=== PATIENT | male | born 1960 | race Caucasian/White ===

== ENCOUNTER → 2024-05-01 13:07 | Outpatient (BNVA) | payer BC, SELFPAY | PROVIDERS: PCP Nurse Practitioner Family; Visit Provider Student in an Organized Health Care Education/Training Program | DX: M19.011 Primary osteoarthritis, right shoulder | CPT/HCPCS: 73030 ==

== ENCOUNTER → 2024-06-08 07:49 | Outpatient (BNVA) | payer BC, SELFPAY | PROVIDERS: PCP Nurse Practitioner Family; Visit Provider Student in an Organized Health Care Education/Training Program | DX: M19.011 Primary osteoarthritis, right shoulder (principal) | CPT/HCPCS: 77002 ==

== ENCOUNTER → 2024-06-28 08:31 | Outpatient (BNVA) | payer BC, SELFPAY | PROVIDERS: PCP Nurse Practitioner Family; Visit Provider Nurse Practitioner Family | DX: Z00.00 Encounter for general adult medical examination without abnormal findings (principal) | CPT/HCPCS: 80053; 80061; 85025; G0103 ==

== ENCOUNTER 2024-07-13 08:34 | Outpatient (CLI) | payer BC, SELFPAY ==
--- NOTE | 2024-07-13 09:00 | CT_ITS ---
WS: [id number] LDCT LUNG CANCER SCREENING HISTORY: Z00.00 - Encounter for general adult medical examination ... TECHNIQUE: Axial imaging performed from the apices to 1 cm below the costophrenic angles. Coronal and sagittal reformats are submitted with axial MIP series. All CT scans at [facility] use at least one of these dose optimization techniques: automated exposure control; mA and/or kV adjustment per patient size (includes targeted exams where dose is matched to clinical indication); or iterativ e reconstruction. DLP: 69.31 mGy.cm DIvol: Mean CTDIvol: 1.20 (mGy) COMPARISON: None available. Diagnostic quality: Satisfactory Lungs: Mild hyperinflation with no pulmonary mass or pneumonia. 4 mm noncalcified nodule at the RIGHT lung base. Heart: Normal size heart with no pericardial effusion.. Other findings: Mild atherosclerosis aorta. Mild dilated pulmonary artery. Small mediastinal and nelda r lymph nodes. No adrenal mass. Splenic and hepatic granulomata. CT/CT lung screening 25257 IMPRESSION: LUNG-RADS: 2-Benign Appearance or Behavior FOLLOW UP: 12 Month: Continue annual screening with LDCT OTHER FINDINGS (S MODIFIER): None.
== END 2024-07-13 08:35 | disposition home or self-care (01) ==
LOC: RAD 08:36
PROVIDERS: PCP Nurse Practitioner Family; Visit Provider Nurse Practitioner Family
DX: Z12.2 Encounter for screening for malignant neoplasm of respiratory organs (principal); R91.1 Solitary pulmonary nodule; D73.89 Other diseases of spleen; K75.3 Granulomatous hepatitis, not elsewhere classified
CPT/HCPCS: 71271

== ENCOUNTER 2024-07-17 09:44 | Day surgery (SDC) | payer BC, SELFPAY ==
[2024-07-17 10:05] VITALS: BMI 23.7
[2024-07-17] MEDS: sodium chloride 0.9% 1,000 ML 30 ML IV (10:15)
[2024-07-17 10:17] VITALS: BP 127/83; PULSE 79; RESP 18; TEMP 36.3; O2SAT 94
--- NOTE | 2024-07-17 10:56 | ANES.PREANE2 ---
Pre-Anesthetic Assessment Height/Weight: Height 1.83 m Weight 79.379 kg Temp Pulse Resp BP Pulse Ox O2 Del Method 97.3 F L 79 18 127/83 94 Room Air 07/17/24 10:17 07/17/24 10:17 07/17/24 10:17 07/17/24 10:17 07/17/24 10:17 07/17/24 10:17 Preop Diagnosis: screening Operation Date: 07/17/24 11:00 Proposed Procedures p EGD 86302, 46474, G0121, Z12.11 . R12(Not Applicable) - Adalid Herring MD s Colonoscopy(Not Applicable) - Adalid Herring MD Familial anesthetic complications: none Was Beta Seble taken within 24 hours: N/A Was Clonidine taken within 24 hours: N/A Last intake: Intake Last Liquid Date 07/16/24 Last Liquid Time 23:00 Last Solid Date 07/15/24 Last Solid Time 15:00 Social Alcohol and Tobacco 1 PPD pack(s) per day Drinks beer Exam alert, oriented x 3, clear to auscultation bilaterally and regular rate & rhythm Airway Submandibular: within normal limits Cervical ROM: within normal limits Mallampati: Class II Dentition: full History/ROS No significant history except as noted and No significant complaints Pulmonary None reported CV/HEM None reported None reported Hepatic None reported GI Gastroesophageal Reflux Disease Metabolic None reported Musc/skel None reported Neuropsych None reported Anesthetic Plan ASA status: 2 Anesthesia: MAC Risk of > 500 ml blood loss (7ml/kg in children): No Medications/Allergies Home Medications Medication Instructions Recorded Confirmed Last Taken Type sildenafil 50 mg tablet (Viagra) 50 mg PO DAILY PRN sexual activity 03/29/24 07/16/24 2 Months Ago Rx #30 tabs ~05/16/24 naproxen sodium 220 mg tablet 220 mg PO BID PRN Pain, Mild 05/01/24 07/16/24 2 Months Ago History (Aleve) ~05/16/24 Allergies Allergy/AdvReac Type Severity Reaction Status Date / Time No Known Allergies Allergy Verified 07/16/24 13:36 Current Medications Generic Name Dose Route Start Last Admin Trade Name Freq PRN Reason Stop Dose Admin Sodium Chloride 1,000 mls @ 30 mls/hr 07/17/24 10:00 07/17/24 10:15 Sodium Chloride 0.9% IV 30 mls/hr .Q24H CHANTE Administration PFSH Anesthesia Medical History (Updated 07/12/24 @ 08:33 by Adalid Herring MD) Flu-like symptoms No pertinent past medical history Surgical History (Updated 07/12/24 @ 07:56 by DANIA Borja) History of back surgery Hx of shoulder surgery right Family History (Updated 07/12/24 @ 07:57 by DANIA Borja) Father Cancer lung Social History Smoking and tobacco/nicotine status: current every day tobacco/nicotine user Data Anesthesia Cardiac Studies: No Data to Display
[2024-07-17] MEDS: acetaminophen 1,000 MG/100 ML PIGGYBACK 400 MG IV (11:09)
--- NOTE | 2024-07-17 12:00 | W.PM.OPSUD ---
Surgery/Procedure H&P Update DATE OF PROCEDURE: July 17, 2024 DATE H&P PERFORMED: 07/12/24 H&P UPDATE INFORMATION: I have reviewed H&P completed within last 30 days, I have examined patient prior to procedure and No changes to prior documentation PREOP DIAGNOSIS: screening PLANNED PROCEDURE: Operation Date: 07/17/24 11:00 Proposed Procedures p EGD 72025, 38608, G0121, Z12.11 . R12(Not Applicable) - Adalid Herring MD s Colonoscopy(Not Applicable) - Adalid Herring MD
[2024-07-17 12:38] VITALS: BP 97/53; PULSE 79; RESP 18; O2SAT 95
[2024-07-17 13:03] VITALS: BP 122/77; PULSE 78; RESP 18; O2SAT 94
[2024-07-17 13:18] VITALS: BP 122/77; PULSE 82; RESP 16; O2SAT 95
--- NOTE | 2024-07-17 13:45 | ANE.PACU2 ---
Inpatient post-anesthesia follow up: Airway intact: Yes Vital signs: Temperature 97.3 F Pulse Rate 82 Respiratory Rate 16 Blood Pressure 122/77 Pulse Oximetry 95 Oxygen Delivery Me thod Room Air Oxygen Flow Rate Fraction of Inspir ed Oxygen Hydration adequate: Yes Nausea and vomiting: No Pain level: 1 Mental status: Baseline
== END 2024-07-17 13:45 | disposition home or self-care (01) ==
PROVIDERS: PCP Nurse Practitioner Family; Visit Provider Student in an Organized Health Care Education/Training Program
PROC: 0DJ08ZZ Inspection of Upper Intestinal Tract, Via Natural or Artificial Opening Endoscopic (ICD-10-PCS; CPT 43235; principal; 2024-07-17 11:00)
PROC: 0DJD8ZZ Inspection of Lower Intestinal Tract, Via Natural or Artificial Opening Endoscopic (ICD-10-PCS; CPT 45378; 2024-07-17 11:00)
DX: Z12.11 Encounter for screening for malignant neoplasm of colon (principal); R12 Heartburn; D12.8 Benign neoplasm of rectum; F17.200 Nicotine dependence, unspecified, uncomplicated; K21.9 Gastro-esophageal reflux disease without esophagitis
CPT/HCPCS: 43239; 45380; 88305; J0131; J2704; J7030

== ENCOUNTER 2025-03-18 20:46 | Emergency (ER) | payer BC, SELFPAY ==
--- NOTE | 2025-03-18 20:47 | ECG_ITS ---
[facility] Test Date: 2025-03-18 Pat Name: Hong Aguirre Department: Room: Gender: Male Breakdown Worker: : 1960 Requested By: Chele Angulo Order Number: [id number] Litzy MD: Trevon Fernández M.D. Measurements Intervals [place] Rate: 91 P: 58 NE: 146 QRS: 39 QRSD: 86 T: 55 QT: 338 QTc: 416 Interpretive Statements SINUS RHYTHM POSSIBLE RIGHT VENTRICULAR CONDUCTION DELAY [RSR (QR) IN V1/V2] No previous ECG available for comparison Electronically Signed On 03-21-2025 09:05:50 CDT by Trevon Fernández M.D. [email or web address]
[2025-03-18 20:50] VITALS: BP 131/87; PULSE 94; RESP 16; TEMP 36.5; O2SAT 96; BMI 24.4
--- OUTSIDE RECORDS SUMMARY | 2025-03-18 20:50 | XMS_ITS | Clinical Summary ---
Author Organization [facility] Address [address] [place] [address] Phone Care Team Providers Care Molecular Pathologist Name Role Phone Moisés Montoya MD Primary Care Provider [phone] Allergies No known active allergies Medications naproxen (NAPROSYN) 500 mg tabletIndication s:Acute pain of left shoulder Take 1 Tablet (500 mg) by mouth 2 times daily with meals. 30 Tablet 2 Active Additional Information Patient not taking.Reported on 07/27/2022 albuterol sulfate 90 mcg/Actuation inhalerIndicatio ns:COVID-19 virus detected Take 2 Puffs by inhalation every 6 hours as needed for Shortness of Breath. 8.5 Gram 2 Active sildenafiL (VIAGRA) 50 mg tabletIndication s:Erectile dysfunction, unspecified erectile dysfunction type Take 1 Tablet (50 mg) by mouth 1 time daily as needed for Erectile Dysfunction. 30 Tablet 3 3 Active pantoprazole (Protonix) 20 mg Tablet, Delayed Release (E.C.)Indication s:Gastroesophage al reflux disease, unspecified whether esophagitis present Take 1 Tablet (20 mg) by mouth daily. 30 Tablet 3 Active cyclobenzaprine (FLEXERIL) 5 mg TabletIndication s:Acute midline low back pain with right-sided sciatica Take 1 Tablet (5 mg) by mouth 3 times daily as needed for Spasm. 30 Tablet 1 3 Active Active Problems Problem Noted Date Diagnosed Date Erectile dysfunction 02/01/2022 Finger pain, left 12/29/2017 Left shoulder strain, initial encounter 12/30/19 18 Herniated lumbar disc without myelopathy 014 Elbow pain 11/19/2011 Resolved Problems Problem Noted Date Diagnosed Date Resolved Date AVN (avascular necrosis of bone), Right Hip. 9 12/15/2021 Immunizations Immunization Administration Dates Next Due (ADACEL/BOOSTRIX)(10 YR UP) TDAP VACCINE, 0.5ML, IM 03/07/2023 (TDVAX)(7 YRS UP) TETANUS AN D DIPHTHERIA TOXOIDS, ADSORBED (2 LF OF TETANUS TOXOID AND 2 LF OF DIPHTHERIA TOXOID), 0.5ML (PF), IM 11/25/2003 (TENIVAC)(7 YRS UP) TETANUS AND DIPHTHERIA TOXOIDS, ADSORBED (5 LF OF TETANUS TOXOID AND 2 LF OF DIPHTHERIA TOXOID), 0.5ML (PF), IM 12/29/2017 Hepatitis A Vaccine 08/10/2004,01/09/2004 Hepatitis B Vaccine 11/25/2003,12/17/1994,1994 Hepatitis B Vaccine, Unspeci fied Formulation 11/25/2003,12/17/1994,10/31/1994 Influenza Seasonal Unspecifi ed Formulation IM 07/19/2013 Family History Medical History Relation Name Comments Heart Disease Father Relation Name Status Comments Father Alive Mother Alive Social History Tobacco Use Types Packs/Day Years Used Date Smoking Tobacco: Former Cigarettes Smokeless Tobacco: Never Tobacco Cessation:Counseling Given: No Comments:Quit smokin days smoke free per pt 11 FEBRUARY 2014 Alcohol Use Standard Drinks/Week Comments Yes 0 (1 standard drink = 0.6 oz pur e alcohol) Sex and Gender Information Value Date Recorded Sex Assigned at Not on file Legal 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 Gender Identity Not on file Sexual Orientation Not on file Last Filed Vital Signs Vital Sign Reading Time Taken Comments Blood Pressure 120/82 03/21/2023 9:37 AM CDT Pulse 90 03/21/2023 9:37 AM CDT Temperature 36.7 C (98.1 F) 03/21/2023 9:37 AM CDT Respiratory Rate 18 03/21/2023 9:37 AM CDT Oxygen Saturation 97% 03/21/2023 9:37 AM CDT Inhaled Oxygen Concentration - - Weight 78.6 kg (173 lb 3.2 oz) 03/21/2023 9:37 A M CDT Height 182.9 cm (6') 03/21/2023 9:37 AM CDT Body Mass Index 23.49 03/21/2023 9:37 AM CDT Plan of Treatment Health Maintenance Due Date Last Done Comments COLORECTAL SCREENING 2007 Colorectal Cancer Screening 2007 FIT-DNA Q 3 years 2007 FIT/FOBT Q 1 year 2007 Flex Sig/CT Colonography Q 5 years 2007 ZOSTER VACCINE (1 of 2) 2012 Preventative Visit- Commercial 08/29/2024 INFLUENZA VACCINE (#1) 2025 2, 12/15/2021, 07/19/2013 DTAP/TDAP/TD VACCINES (2 - T d or Tdap) 03/07/2033 03/07/2023, 12/29/2017, 11/25/2003 RSV VACCINE (60+ or ) (1 - 1-dose 75+ series) 2037 Insurance [facility] BLUE ACCESS/TRUE BLUE PPO Care Teams Molecular Pathologist Relationship Specialty Start Date End Date Moisés Montoya MD [address] [place] [address] PCP - General Family Practice 03/10/21
[2025-03-18 22:38] LABS: Hematocrit 46.2 % (37-53); Hemoglobin 16.00 g/dL (11.27-16.99); Mean Corpuscular HGB Conc 34.6 g/dL (30-55); Mean Corpuscular Hemoglobin 31.3 pg (27-33); Mean Corpuscular Volume 90.4 fl (82-101); Nucleated Red Blood Cells % 0 %; Platelet Count 199 10^3/cmm (157-399); Red Blood Count 5.11 10^6/uL (3.85-5.65); White Blood Count 9.51 10^3/uL (3.29-11.43)
--- NOTE | 2025-03-18 22:40 | W.ED.CHESTPA ---
Documented by User: Karl Cullen DO 03/19/25 13:53 HPI - Chest Pain General: Chief Complaint: Chest Pain Stated Complaint: chest pain Time Seen by Provider: 03/18/25 22:24 History of Present Illness: 64-year-old male presents emergency room complaining of chest pain began today while at the grocery store. It has been going on since around noon time he is felt like he might pass out it seemed to resolve and then began to recur again. Patient stated he had these episodes intermittently for the last 2 weeks that usually come on while at rest the last 20 to 30 minutes at a time he will get nauseous with it he does not really get any radiation of the pain in the neck or arm will feel short of breath with him but no diaphoresis he has not had any vomiting. He states that many years ago he had a stress test that did an angiogram after the stress test told him there was some heart disease but nothing that required any kind of intervention. Patient is a lifelong smoker. Associated symptoms: Deny abdominal pain, dyspnea or fever(s) Related Data Home Medications ?Medication ?Instructions ?Recorded ?Confirmed naproxen sodium 220 mg tablet 220 mg PO BID PRN Pain, Mild 05/01/24 07/24/24 (Aleve) Previous Rx's ?Medication ?Instructions ?Recorded sildenafil 50 mg tablet (Viagra) 50 mg PO DAILY PRN sexual activity 03/29/24 #30 tabs Allergies Allergy/AdvReac Type Severity Reaction Status Date / Time No Known Allergies Allergy Verified 03/18/25 20:53 Review of Systems Const: Denies: fever(s) or chills Card: Reports: chest pain Resp: Denies: dyspnea GI: Denies: abdominal pain : Denies: dysuria, urinary frequency or urinary urgency Musc: Denies: neck pain or back pain Skin/Breast: Denies: rash PFSH ED PFSH: Medical History Flu-like symptoms No pertinent past medical history Surgical History History of back surgery Hx of shoulder surgery right Family History Father Cancer lung Social History Smoking and tobacco/nicotine status: current every day tobacco/nicotine user Physical Exam Const: GENERAL APPEARANCE: cooperative ORIENTATION/CONSCIOUSNESS: Yes awake, Yes oriented to person, Yes oriented to place and Yes oriented to time HENMT: COMMON NORMALS: normocephalic, atraumatic and hearing grossly normal bilaterally HEAD & SCALP: normocephalic and atraumatic Resp: COMMON NORMALS: normal respiratory effort, No retractions, No use of accessory muscles and clear to auscultation bilaterally AUSCULTATION: clear to auscultation bilaterally Cardio: COMMON NORMALS: regular rate, regular rhythm and No murmurs present (Cardio) RATE: regular rate RHYTHM: regular rhythm GI: COMMON NORMALS: Soft to palpation and No hepatosplenomegaly present AUSCULTATION: Yes normoactive bowel sounds PALPATION: Yes Soft to palpation, No Tenderness to palpation present (GI), No Guarding due to palpation present (GI) and Yes No hepatosplenomegaly present Extremity: COMMON NORMALS: normal to inspection, capillary refill normal, no clubbing, cyanosis or edema, no calf tenderness and no pedal edema Neuro: SENSORIUM/ORIENTATION: Yes oriented to person, Yes oriented to place and Yes oriented to time Skin: COMMON NORMALS: no rashes or lesions noted GENERAL SKIN EXAM: no rashes or lesions noted Course Vital Signs: Vital signs: Vital Signs Temperature 97.7 F 03/18/25 20:50 Pulse Rate 95 03/19/25 01:15 Respiratory Rate 20 H 03/19/25 01:15 Blood Pressure 116/80 03/19/25 01:15 Pulse Oximetry 100 03/19/25 01:15 [facility] - Chest Pain Medical Decision Making Care signed out to Dr. Rabago at change of shift. See final notes for diagnosis and disposition. 64-year-old male signed out to me in shift change from Dr. Cullen. I reexamined the patient. His pain is resolved. He states he feels better. His EKG was not remarkable. No ST-T wave changes. Shows sinus rhythm with normal axis. He had an RS R prime in V1 and V2. His blood pressure is normalized. His CBC and BMP are normal. His chest x-ray shows no acute findings. His lipase is 32. His troponin is 7 at baseline and less than 6 at 2 hours with improvement in his pain. He would like to go home. He was advised to return for any return of his symptoms. Outpatient stress test will be set up for the patient. Case management has been asked to do this. Lab Data 03/18/25 22:12 03/18/25 22:12 Radiology Impressions Chest X-Ray 03/18/25 23:59 IMPRESSION: No acute findings. Laboratory Results WBC 9.51 10^3/uL (3.29-11.43) 03/18/25 22:12 RBC 5.11 10^6/uL (3.85-5.65) 03/18/25 22:12 Hgb 16.00 g/dL (11.27-16.99) 03/18/25 22:12 Hct 46.2 % (37-53) 03/18/25 22:12 MCV 90.4 fl (82-101) 03/18/25 22:12 MCH 31.3 pg (27-33) 03/18/25 22:12 MCHC 34.6 g/dL (30-55) 03/18/25 22:12 RDW 12.1 % (12.1-15.1) 03/18/25 22:12 Plt Count 199 10^3/cmm (157-399) 03/18/25 22:12 MPV 10.2 fL (7.4-10.4) 03/18/25 22:12 Neut % (Auto) 59.1 % 03/18/25 22:12 Lymph % (Auto) 26.1 % 03/18/25 22:12 Wood % (Auto) 8.3 % 03/18/25 22:12 Eos % (Auto) 5.4 % 03/18/25 22:12 Baso % (Auto) 0.7 % 03/18/25 22:12 Neut # (Auto) 5.62 10^3/uL (1.8-7.7) 03/18/25 22:12 Lymph # (Auto) 2.5 10^3/uL (0.8-4.8) 03/18/25 22:12 Wood # (Auto) 0.8 10^3/uL (0.2-0.9) 03/18/25 22:12 Eos # (Auto) 0.5 10^3/uL (0.0-0.8) 03/18/25 22:12 Baso # (Auto) 0.1 10^3/uL (0.0-0.1) 03/18/25 22:12 Nucleated RBC % (auto) 0 % 03/18/25 22:12 Nucleated RBCs # 0.0 /100WBC 03/18/25 22:12 Sodium 138 mmol/L (136-145) 03/18/25 22:12 Potassium 4.5 mmol/L (3.5-5.1) 03/18/25 22:12 Chloride 101 mmol/L (98-107) 03/18/25 22:12 Carbon Dioxide 25 mmol/L (22-29) 03/18/25 22:12 Anion Gap 16.5 (5-19) 03/18/25 22:12 BUN 11 mg/dL (8-23) 03/18/25 22:12 Creatinine 1.0 mg/dL (0.7-1.2) 03/18/25 22:12 GFR Calculation 75.7 mL/min (90-130) L 03/18/25 22:12 Glucose 93 mg/dL (65-115) 03/18/25 22:12 Calculated Osmolality 285 mOsm/kg (285-295) 03/18/25 22:12 Calcium 9.3 mg/dL (8.5-10.5) 03/18/25 22:12 Total Bilirubin 0.6 mg/dL (0.15-1.2) 03/18/25 22:12 AST 14 U/L (0-40) 03/18/25 22:12 ALT 12 U/L (0-41) 03/18/25 22:12 Alkaline Phosphatase 104 U/L (40-130) 03/18/25 22:12 Troponin T Baseline 7 ng/L (0-15) 03/18/25 22:12 Troponin T 120 Minute < 6.0 ng/L (0-15) 03/18/25 23:58 Delta Troponin T -1.30952 ABS# (0-10) L 03/18/25 23:58 Total Protein 7.0 g/dL (6.6-8.7) 03/18/25 22:12 Albumin 4.3 g/dL (3.5-5.2) 03/18/25 22:12 Globulin 2.7 g/dL (1.3-4.6) 03/18/25 22:12 Lipase 32 U/L (13-60) 03/18/25 22:12 Discharge Plan Discharge Patient Disposition: Home Clinical Impression: Chest pain Condition: Stable Prescriptions: No Action sildenafil [Viagra] 50 mg tablet 50 mg PO DAILY PRN (Reason: sexual activity) Qty: 30 2RF Rx Instructions: administer 30 minutes to 4 hours before activity naproxen sodium [Aleve] 220 mg tablet 220 mg PO BID PRN (Reason: Pain, Mild) Discharge Orders: Discharge ED (Routine); Ordered 03/19/25 Ordered By: Rd Rabago Referrals: Kit Weems FNP [Primary Care Provider, Family Practice] - 1-3 days Patient Instructions: Chest Pain (ED), Opioid Safety, Pain Management, Patient Portal & Oriana Instructions Activity Restrictions/Additional Instructions: Case management has been asked to set up an outpatient stress test for you. You should get a call from them later this week. Results will go to your doctor. Call your doctor tomorrow for follow-up appointment. Return to the emergency department for any return of your pain, shortness of breath, fever, cough, other concerning symptoms. Print Language: Dominican Coding Level of Care Code ED Scaffold Worker for Chg Fwd Documented by User: Rd Rabago DO 03/19/25 03:38 HPI - Chest Pain General: Chief Complaint: Chest Pain Stated Complaint: chest pain Time Seen by Provider: 03/18/25 22:24 Related Data Home Medications ?Medication ?Instructions ?Recorded ?Confirmed naproxen sodium 220 mg tablet 220 mg PO BID PRN Pain, Mild 05/01/24 07/24/24 (Aleve) Previous Rx's ?Medication ?Instructions ?Recorded sildenafil 50 mg tablet (Viagra) 50 mg PO DAILY PRN sexual activity 03/29/24 #30 tabs Allergies Allergy/AdvReac Type Severity Reaction Status Date / Time No Known Allergies Allergy Verified 03/18/25 20:53 PFSH ED PFSH: Medical History Flu-like symptoms No pertinent past medical history Surgical History History of back surgery Hx of shoulder surgery right Family History Father Cancer lung Social History Smoking and tobacco/nicotine status: current every day tobacco/nicotine user Course Vital Signs: Vital signs: Vital Signs Temperature 97.7 F 03/18/25 20:50 Pulse Rate 95 03/19/25 01:15 Respiratory Rate 20 H 03/19/25 01:15 Blood Pressure 116/80 03/19/25 01:15 Pulse Oximetry 100 03/19/25 01:15 MDM - Chest Pain Medical Decision Making 64-year-old male signed out to me in shift change from Dr. Cullen. I reexamined the patient. His pain is resolved. He states he feels better. His EKG was not remarkable. No ST-T wave changes. Shows sinus rhythm with normal axis. He had an RS R prime in V1 and V2. His blood pressure is normalized. His CBC and BMP are normal. His chest x-ray shows no acute findings. His lipase is 32. His troponin is 7 at baseline and less than 6 at 2 hours with improvement in his pain. He would like to go home. He was advised to return for any return of his symptoms. Outpatient stress test will be set up for the patient. Case management has been asked to do this. Lab Data 03/18/25 22:12 03/18/25 22:12 Radiology Impressions Chest X-Ray 03/18/25 23:59 IMPRESSION: No acute findings. Laboratory Results WBC 9.51 10^3/uL (3.29-11.43) 03/18/25 22:12 RBC 5.11 10^6/uL (3.85-5.65) 03/18/25 22:12 Hgb 16.00 g/dL (11.27-16.99) 03/18/25 22:12 Hct 46.2 % (37-53) 03/18/25 22:12 MCV 90.4 fl (82-101) 03/18/25 22:12 MCH 31.3 pg (27-33) 03/18/25 22:12 MCHC 34.6 g/dL (30-55) 03/18/25 22:12 RDW 12.1 % (12.1-15.1) 03/18/25 22:12 Plt Count 199 10^3/cmm (157-399) 03/18/25 22:12 MPV 10.2 fL (7.4-10.4) 03/18/25 22:12 Neut % (Auto) 59.1 % 03/18/25 22:12 Lymph % (Auto) 26.1 % 03/18/25 22:12 Wood % (Auto) 8.3 % 03/18/25 22:12 Eos % (Auto) 5.4 % 03/18/25 22:12 Baso % (Auto) 0.7 % 03/18/25 22:12 Neut # (Auto) 5.62 10^3/uL (1.8-7.7) 03/18/25 22:12 Lymph # (Auto) 2.5 10^3/uL (0.8-4.8) 03/18/25 22:12 Wood # (Auto) 0.8 10^3/uL (0.2-0.9) 03/18/25 22:12 Eos # (Auto) 0.5 10^3/uL (0.0-0.8) 03/18/25 22:12 Baso # (Auto) 0.1 10^3/uL (0.0-0.1) 03/18/25 22:12 Nucleated RBC % (auto) 0 % 03/18/25 22:12 Nucleated RBCs # 0.0 /100WBC 03/18/25 22:12 Sodium 138 mmol/L (136-145) 03/18/25 22:12 Potassium 4.5 mmol/L (3.5-5.1) 03/18/25 22:12 Chloride 101 mmol/L (98-107) 03/18/25 22:12 Carbon Dioxide 25 mmol/L (22-29) 03/18/25 22:12 Anion Gap 16.5 (5-19) 03/18/25 22:12 BUN 11 mg/dL (8-23) 03/18/25 22:12 Creatinine 1.0 mg/dL (0.7-1.2) 03/18/25 22:12 GFR Calculation 75.7 mL/min (90-130) L 03/18/25 22:12 Glucose 93 mg/dL (65-115) 03/18/25 22:12 Calculated Osmolality 285 mOsm/kg (285-295) 03/18/25 22:12 Calcium 9.3 mg/dL (8.5-10.5) 03/18/25 22:12 Total Bilirubin 0.6 mg/dL (0.15-1.2) 03/18/25 22:12 AST 14 U/L (0-40) 03/18/25 22:12 ALT 12 U/L (0-41) 03/18/25 22:12 Alkaline Phosphatase 104 U/L (40-130) 03/18/25 22:12 Troponin T Baseline 7 ng/L (0-15) 03/18/25 22:12 Troponin T 120 Minute < 6.0 ng/L (0-15) 03/18/25 23:58 Delta Troponin T -1.83284 ABS# (0-10) L 03/18/25 23:58 Total Protein 7.0 g/dL (6.6-8.7) 03/18/25 22:12 Albumin 4.3 g/dL (3.5-5.2) 03/18/25 22:12 Globulin 2.7 g/dL (1.3-4.6) 03/18/25 22:12 Lipase 32 U/L (13-60) 03/18/25 22:12 All radiology interpretation(s) finalized by discharge Discharge Plan Discharge Patient Disposition: Home Clinical Impression: Chest pain Condition: Stable Prescriptions: No Action sildenafil [Viagra] 50 mg tablet 50 mg PO DAILY PRN (Reason: sexual activity) Qty: 30 2RF Rx Instructions: administer 30 minutes to 4 hours before activity naproxen sodium [Aleve] 220 mg tablet 220 mg PO BID PRN (Reason: Pain, Mild) Discharge Orders: Discharge ED (Routine); Ordered 03/19/25 Ordered By: Rd Rabago Referrals: Faustina,Kit Ruiz, RAILROAD DISPATCHER [Primary Care Provider, Family Practice] - 1-3 days Patient Instructions: Chest Pain (ED), Opioid Safety, Pain Management, Patient Portal & Oriana Instructions Activity Restrictions/Additional Instructions: Case management has been asked to set up an outpatient stress test for you. You should get a call from them later this week. Results will go to your doctor. Call your doctor tomorrow for follow-up appointment. Return to the emergency department for any return of your pain, shortness of breath, fever, cough, other concerning symptoms. Print Language: Dominican Coding Level of Care Code ED Scaffold Worker for Gaetano Wright
--- NOTE | 2025-03-18 22:47 | ECG_ITS ---
[facility] Test Date: 2025-03-18 Pat Name: Hong Aguirre Department: Room: Gender: Male Cam Specialist: : 1960 Requested By: Chele Angulo Order Number: [id number] Reading MD: Measurements Intervals [place] Rate: 80 P: 51 IN: 144 QRS: 25 QRSD: 88 T: 50 QT: 361 QTc: 417 Interpretive Statements SINUS RHYTHM POSSIBLE RIGHT VENTRICULAR CONDUCTION DELAY [RSR (QR) IN V1/V2] [email or web address]
[2025-03-18 22:57] LABS: Alanine Aminotransferase 12 U/L (0-41); Albumin Level 4.3 g/dL (3.5-5.2); Alkaline Phosphatase 104 U/L (40-130); Anion Gap 16.5 (5-19); Aspartate Amino Transferase 14 U/L (0-40); Blood Urea Nitrogen 11 mg/dL (8-23); Calcium 9.3 mg/dL (8.5-10.5); Carbon Dioxide 25 mmol/L (22-29); Chloride 101 mmol/L (98-107); Creatinine Clr Calc Pharmacy 85.8204; Globulin 2.7 g/dL (1.3-4.6); Glucose 93 mg/dL (65-115); Lipase 32 U/L (13-60); Osmolality Calculated 285 mOsm/kg (285-295); Potassium 4.5 mmol/L (3.5-5.1); Sodium 138 mmol/L (136-145); Total Protein 7.0 g/dL (6.6-8.7)
[2025-03-18 23:10] LABS: Troponin(5th) Baseline 7 ng/L (0-15)
--- NOTE | 2025-03-18 23:59 | XRR_ITS ---
PROCEDURE INFORMATION: Exam: XR Chest Exam date and time: 03/19/2025 12:06 AM Age: 64 years old Clinical indication: Pain; Chest pressure and left-sided; Additional info: Chest pain TECHNIQUE: Imaging protocol: Radiologic exam of the chest. Views: 1 view. COMPARISON: CT lung screening [id number] 07/13/2024 8:38 AM FINDINGS: Lungs: Unremarkable. No consolidation. Pleural spaces: Unremarkable. No pleural effusion. No pneumothorax. Heart/Mediastinum: Unremarkable. No cardiomegaly. Bones/joints: Unremarkable. XR/XR chest 1V portable [id number] IMPRESSION: No acute findings.
[2025-03-19 00:32] LABS: Troponin 5 2HR < 6.0 ng/L (0-15); Troponin 5 2HR Delta -1.00001 ABS# (0-10)
[2025-03-19 01:15] VITALS: BP 116/80; PULSE 95; RESP 20; O2SAT 100
== END 2025-03-19 01:15 | disposition home or self-care (01) ==
PROVIDERS: Emergency Medicine; Emergency Provider Emergency Medicine; PCP Nurse Practitioner Family
DX: R07.9 Chest pain, unspecified (principal)
CPT/HCPCS: 36415; 71045; 80053; 83690; 84484; 85025; 93005; 99285; J9999

== ENCOUNTER 2025-03-29 09:14 | Outpatient (CLI) | payer BC, SELFPAY ==
[2025-03-29 09:23] VITALS: BMI 24.4
--- NOTE | 2025-03-29 09:32 | ECG_ITS ---
[facility] Test Date: 2025-03-29 Pat Name: Hong Aguirre Department: Room: Gender: Male Online Content Editor: : 1960 Requested By: Rd Carney Order Number: [id number] Litzy MD: Murali Potter M.D. Interpretive Statements LEXISCAN SESTAMIBI STRESS TEST Procedure: At the baseline, the blood pressure was 130/72 mmHg with a heart rate of 81 bpm. The electrocardiogram showed normal sinus rhythm, normal axis with poor R wave progression and minor nonspecific ST-T wave abnormality. The Lexiscan was infused over a period of 20 seconds. A total of 0.4 mg of Lexiscan was infused. The stress phase was continued for a total of 5 minutes. Heart rate was at the end of stress phase was 85 bpm and a blood pressure of 133/71 mmHg. The EKG at the peak infusion revealed normal sinus rhythm with no significant ST-T wave changes. Sestamibi was injected 20 seconds after the Lexiscan infusion. Blood pressure at the end of recovery phase was 137/68 mmHg with a heart rate of 87 bpm. Conclusion: 1. Normal EKG response to Lexiscan infusion 2. No Lexiscan induced chest pain or cardiac arrhythmia. 3. Normal blood pressure and heart rate response. 4. Nuclear myocardial perfusion scan pending; see separate report. Electronically Signed On 03-31-2025 11:18:49 CDT by Murali Potter M.D. [email or web address]
--- NOTE | 2025-03-29 09:33 | NMCV_ITS ---
NM ilya perf SPECT r/s* [id number] Hong Aguirre Age: 64 Gender: M : 1960 Exam Date: 03/29/2025 10:11 Ordering Phys: Rd Rabago DO Technologist: CHARLES Brothers Exam Location: [facility] Indications: cp STRESS TEST Please [facility] for [facility] IMAGE PROTOCOL Rest/Stress 1 Lexiscan Day Radiopharmaceutical Dose (mCi) Administration Site Administered by Rest: Tc-99m 10.7 IV Leslee Rojas, WASTEWATER ANALYST LAB ANALYST Sestamibi Stress:Tc-99m 33 IV Leslee Nicholsgle, WASTEWATER ANALYST LAB ANALYST Sestamibi Rest: 29-Mar-2025 60 Discovery 630 Stress: 29-Mar-2025 30 Discovery 630 0.4mg Lexiscan. Images obtained in supine and prone position. SPECT RESULTS Technical Quality: Good Raw Data Analysis: Normal Image Corrections: No attenuation or motion correction applied Summed Stress Score: 1 Summed Rest Score: 5 Summed Difference Score: 0 PERFUSION FINDINGS SPECT images demonstrate homogeneous tracer distribution throughout the myocardium. FUNCTIONAL RESULTS (calculated via Gated SPECT) Stress Image LV EF (%): 59 Stress EDV (mL):118 TID: 0.95 Stress ESV (mL):48 FUNCTIONAL FINDINGS: There is normal left ventricular systolic function. EF 59%. IMPRESSIONS Myocardial perfusion imaging is normal. Normal LVEF systolic function. EF 59% Murali Potter MD, FACC (Electronically Signed) Final Date: 29 March 2025 12:53 S
[2025-03-29 10:48] VITALS: BP 121/71; PULSE 87
== END 2025-03-29 09:15 | disposition home or self-care (01) ==
LOC: CDL 09:16
PROVIDERS: PCP Nurse Practitioner Family; Visit Provider Emergency Medicine
DX: R07.9 Chest pain, unspecified (principal)
CPT/HCPCS: 36415; 78452; 93017; 96374; A9500; J2785